=== PATIENT | male | born 1990 | race African-American/Black ===

== ENCOUNTER 2016-07-04 09:11 | Emergency (ER) | payer OTHER ==
[2016-07-04 09:27] VITALS: BP 162/83; PULSE 87; TEMP 98.6; BMI 32.3
[2016-07-04] MEDS ORDERED: IBUPROFEN 600 MG TABLET (FP) PO ONE ×2 (10:04→10:05)
--- NOTE | 2016-07-04 10:05 | PDOC ---
History of Present Illness - General Chief Complaint: Pain Stated Complaint: PAIN (RT FOOT) Time Seen by Provider: 07/04/16 09:41 History Source: Patient Exam Limitations: No Limitations - History of Present Illness Initial Comments: 07/04/16 20:00 My Chief Complaint: pain left foot History of Present Illness: He is a 25-year-old male patient is a 25-year-old male with no significant medical problems here today complaining of left dorsal foot pain after dropping a weight on it last night. Patient reports pain is currently an 8 out of 10 in his left dorsal foot. Patient denies any numbness of his left foot. There is some swelling noticed to the left dorsal foot. Patient also complaining about a hardened circular area on the bottom of his left foot that he has had for months that is tender at times to touch. 07/04/16 20:01 07/04/16 20:03 07/04/16 20:03 Severity: Yes: moderate Lower Extremity Pain Location: left: foot Method of Injury: Yes: direct blow (by a 45 lb wt. ) Lower Ext. Injury Location - Specific Injury Location Foot: left foot pain, left foot swelling (dorsal ) Extremity Pain Location - Extremity Pain Location Extremity Pain Locations: left: foot (dorsal ) Past History - Past Medical History Allergies/Adverse Reactions: Allergies Allergy/AdvReac Type Severity Reaction Status Date / Time No Known Allergies Allergy Verified 07/04/16 09:25 Home Medications: Ambulatory Orders NK [No Known Home Medication] 07/04/16 - Immunization History Immunization Up to Date: Yes - Psycho/Social/Smoking Cessation Hx Suicidal Ideation: No Smoking History: Former smoker Have you smoked in the past 12 months: Yes If you are a former smoker, when did you quit?: 2 weeks ago Information on smoking cessation initiated: No Hx Alcohol Use: No Drug/Substance Use Hx: No Review of Systems - Review of Systems Able to Perform ROS?: Yes Constitutional: No: Symptoms Reported HEENTM: No: Symptoms Reported Respiratory: No: Symptoms reported Cardiac (ROS): No: Symptoms Reported ABD/GI: No: Symptoms Reported : No: Symptoms Reported Musculoskeletal: Yes: Joint Pain (left dorsal foot), Joint Swelling (left dorsal foot ), Other (hard circular area left plantar foot ) Integumentary: Yes: Other (circular firm area left plantar foot) *Physical Exam - Vital Signs Last Vital Signs Temp Pulse Resp BP Pulse Ox 98.6 F 87 18 162/83 100 07/04/16 09:25 07/04/16 09:25 07/04/16 09:25 07/04/16 09:25 07/04/16 09:25 - Physical Exam Vascular Pulses: Dorsalis-Pedis (R): 4+ Extremity: positive: Normal Capillary Refill, Normal Range of Motion (left ankle / toes/foot ), Tender (left dorsal foot ), Swelling (left dorsal foot ) Integumentary: positive: Other (circular hard area left plantar foot pea size for months ) Neurologic: positive: Alert, Normal Response, Respond to painful stimul (left foot ). negative: Sensory Deficit Deep Tendon Reflexes: Ankle (L): 4+ Procedures - Consent Consent obtained: From Patient - Splinting Splint Location: Left: Foot Bassem Bandage: 3" Complications: No Progress: 07/04/16 20:07 crutches given Medical Decision Making - Medical Decision Making 07/04/16 11:10 07/04/16 20:05 He is a 25-year-old male patient is a 25-year-old male with no significant medical problems here today complaining of left dorsal foot pain after dropping a weight on it last night. Patient reports pain is currently an 8 out of 10 in his left dorsal foot. Patient denies any numbness of his left foot. There is some swelling noticed to the left dorsal foot. Patient also complaining about a hardened circular area on the bottom of his left foot that he has had for months that is tender at times to touch. left dorsal foot contusion left plantar foot plantar wart r/o fracture lef foot PLAN: xray left foot negative for fracture per Dr. Walls Ibuprofen 600 mg po now crutches given bassem wrap left foot follow up with podiatry follow up with orthopedist 07/04/16 20:07 *DC/Admit/Observation/Transfer Diagnosis at time of Disposition: Plantar callus Contusion of foot, left Qualifiers: Encounter type: initial encounter Qualified Code(s): S90.32XA - Contusion of left foot, initial encounter - Discharge Dispostion Disposition: HOME Condition at time of disposition: Stable - Referrals Referrals: Devon Landers MD [Staff Physician] - Jeremy Machado MD [Staff Physician] - - Patient Instructions Additional Instructions: Apply ice to left foot every 2 hours for at least 15 minutes each time while awake today and elevate your left leg use crutches for ambulation Return to emergency room if symptoms worsen or new symptoms develop Ibuprofen as needed as directed by diamond die maker for pain Follow-up with orthopedist if pain continues and left foot Follow-up with brick pitcher as soon as possible for evaluation of area on bottom of left foot Patient voiced understanding of discharge instructions and all questions were answered - Post Discharge Activity Work/School Note: Back to Work
== END 2016-07-04 11:20 | disposition home or self-care (01) ==
LOC: JERFT 09:11
DX: S90.32XA Contusion of left foot, initial encounter (principal); L84 Corns and callosities; W20.8XXA Other cause of strike by thrown, projected or falling object, initial encounter; Y93.89 Activity, other specified; Y92.89 Other specified places as the place of occurrence of the external cause
CPT/HCPCS: 73630-TC-LT; 99281-25